=== PATIENT | male | born 1955 | race Hispanic/Latino ===

== ENCOUNTER 2016-12-05 14:35 | Emergency (ER) | payer OTHER ==
[2016-12-05 14:39] VITALS: BP 152/76; PULSE 72; RESP 16; TEMP 97.8; O2SAT 100
[2016-12-05 16:16] LABS: BASO % 0.8 % (0.0-2.0); EOS # 0.2 K/uL (0.0-0.7); EOS % 3.2 % (0.0-4.0); HEMATOCRIT 38.6 % (35.0-51.0); LYMPH # 1.7 K/uL (1.0-4.3); LYMPH % 28.9 % (20.0-40.0); MEAN CELL VOLUME 92.2 fl (80.0-94.0); MEAN CORPUSCULAR HGB CONC 32.5 g/dL (33.0-37.0); MEAN PLATELET VOLUME 9.2 fl (7.2-11.7); MONO # 0.8 K/uL (0.0-0.8); MONO % 14.1 % (0.0-10.0); NEUT # 3.1 K/uL (1.8-7.0); RED CELL DISTRIBUTION WIDTH 13.8 % (11.5-14.5); WHITE BLOOD COUNT 5.9 K/uL (4.8-10.8)
[2016-12-05 16:39] LABS: ALB/GLOB RATIO 1.1 (1.0-2.1); ALKALINE PHOSPHATASE 60 U/L (38-126); ALT/SGPT 67 U/L (21-72); AST/SGOT 61 U/L (17-59); BILIRUBIN,TOTAL 0.5 mg/dl (0.2-1.3); BLOOD UREA NITROGEN 14 mg/dl (9-20); CALCIUM 9.1 mg/dL (8.4-10.2); CARBON DIOXIDE 26 mmol/L (22-30); CHLORIDE 106 mmol/L (98-107); GFR AFRICAN-AMERICAN > 60; GLUCOSE,RANDOM 114 mg/dL (75-110); SODIUM 141 mmol/l (132-148); TOTAL PROTEIN 7.3 G/DL (6.3-8.2)
[2016-12-05 16:40] LABS: POTASSIUM 4.5 MMOL/L (3.6-5.0)
[2016-12-05 16:45] LABS: PARTIAL THROMBOPLASTIN TIME 28.7 Seconds (25.6-37.1)
--- NOTE | 2016-12-05 17:27 | US ---
PROCEDURE: Right lower extremity venous duplex Doppler. HISTORY: swelling to LE COMPARISON: None available. TECHNIQUE: Common femoral, superficial femoral, popliteal and posterior tibial veins were evaluated. Flow was assessed with color Doppler, compressibility, assessment of phasic flow and augmentation response. FINDINGS: COMMON FEMORAL VEIN: Unremarkable. SUPERFICIAL FEMORAL VEIN: Unremarkable. POPLITEAL VEIN: Unremarkable. POSTERIOR TIBIAL VEIN: Unremarkable. OTHER FINDINGS: Enlarged right inguinal lymph node, 4 cm greatest dimension. IMPRESSION: No evidence of deep venous thrombosis in the right lower extremity. 4 cm right inguinal lymph node noted.
--- NOTE | 2016-12-05 17:56 | ED PDOC ---
Lower Extremity Pain/Injury Time Seen by Provider: 12/05/16 15:50 Chief Complaint (Nursing): Lower Extremity Problem/Injury Chief Complaint (Provider): right lower leg swelling Additional Complaint(s): 61yo M in ED for eval of right leg pain-swelling and skin changes according to pt x1 week without associated fever chills nausea vomiting weakness. Pt admits to pain to leg intermittent. Pt admits to years of varicose vein swelling but has not been seen by a vascular surgeon. pt admits to cramping and swelling. pt denies CP, SOB, visoin changes, cough, abd pain. Past Medical History Reviewed: Historical Data, Nursing Documentation, Vital Signs Vital Signs: Last Vital Signs Temp 97.8 F 12/05/16 14:37 Pulse 72 12/05/16 14:37 Resp 16 12/05/16 14:37 BP 152/76 H 12/05/16 14:37 Pulse Ox 100 12/05/16 14:37 - Medical History PMH: Pancreatitis Denies: Chronic Kidney Disease - Surgical History Surgical History: Endoscopy - Family History Family History: States: Unknown Family Hx - Home Medications Home Medications: Ambulatory Orders Medication Instructions Recorded Amlodipine Besylate [Norvasc] 10 mg PO DAILY #0 tablet 10/19/15 Cyanocobalamin [Vitamin B12] 500 mcg PO DAILY #0 tab 10/19/15 Famotidine [Pepcid] 40 mg PO DAILY #0 tab 10/19/15 Folic Acid 1 mg PO DAILY #0 tab 10/19/15 Thiamine [Vitamin B1 Tab] 100 mg PO DAILY #0 tab 10/19/15 - Allergies Allergies/Adverse Reactions: Allergies Allergy/AdvReac Type Severity Reaction Status Date / Time No Known Allergies Allergy Verified 12/05/16 14:37 Wells Criteria for PE - Wells Criteria for Pulmonary Embolism Clinical Signs and Symptoms of DVT: No P.E is #1 Diagnosis, or Equally Likely: No Heart Rate >100: No Immobilization at least 3 days;Surgery previous 4 weeks: No Previous, objectively diagnosed PE or DVT: No Hemoptysis: No Malignancy w/treatment within 6 months, or palliative: No Total Score: 0 Review of Systems ROS Statement: Except As Marked, All Systems Reviewed And Found Negative Musculoskeletal: Positive for: Leg Pain Physical Exam - Reviewed Nursing Documentation Reviewed: Yes Vital Signs Reviewed: Yes - Physical Exam Appears: Positive for: Well, Non-toxic, No Acute Distress Skin: Positive for: Normal Color, Warm, DRY Cardiovascular/Chest: Positive for: Regular Rate, Rhythm Respiratory: Positive for: CNT, Normal Breath Sounds Extremity: Positive for: Other (right LE: swelling torotuous varicose viens noted. dependent edema noted. skin changes consistent with venous stasis noted and some drainage of serangiounous fluids. ) Neurologic/Psych: Positive for: Alert, Oriented - Laboratory Results Result Diagrams: 12/05/16 16:00 12/05/16 16:00 - ECG O2 Sat by Pulse Oximetry: 100 - Progress ED Course And Treament: duplex and cbc/cmp. Medical Decision Making Medical Decision Making: no evidence of DVT at this time MD dottie made aware and review case. pt will f/u outpt with vascular and get cleocin for venous stasis. Disposition - Clinical Impression Clinical Impression: Venous stasis dermatitis, Varicose vein of leg - Patient ED Disposition Is Patient to be Admitted: No Counseled Patient/Family Regarding: Studies Performed, Diagnosis, Need For Followup, Rx Given - Disposition Referrals: [facility] [Outside] Disposition: Routine/Home Disposition Time: 18:02 Condition: STABLE Additional Instructions: You need to be seen by a vascular surgeon. Instructions: Varicose Veins (ED), Stasis Dermatitis (ED) Forms: [employer] (Turkmen) Print Language: [id number]
== END 2016-12-05 18:21 | disposition home or self-care (01) ==
LOC: H.ER 14:35
DX: I87.2 Venous insufficiency (chronic) (peripheral) (principal); I87.8 Other specified disorders of veins; K85.90 Acute pancreatitis without necrosis or infection, unspecified